=== PATIENT | female | born 1935 | race Caucasian/White ===

== ENCOUNTER → 2018-09-19 15:48 | Outpatient (CLI) | payer MEDICARE, SELFPAY ==
--- NOTE | 2018-09-18 | IMM_PTH ---
PATIENT: TONIA EDMOND LOC: [facility] U#:[id number] AGE/SX: 89/F ROOM: RE09/19/[address]: Dr. Agustín Acevedo MD : 1935 BED: DIS: SPEC #: [id number] RECD: 09/20/18 13:37 STATUS: EUNICE REQ #: [id number] BLADIMIR: 09/18/18 00:[address]: Agustín Acevedo DEPT: IMMUNOHISTOCHEMISTRY RECD BY: Valery Zuniga ENTERED: 09/20/18 13:38 SP TYPE: IMMUNO OTHR DR: Dr. North Quintana MD Tissues: Stomach, NOS Procedures: H Pylori (initial) PHYSICIAN & INSTITUTION [facility] [id number] SPECIMEN INFORMATION: Tissue Source: Antral biopsy Clinical Info: Screening Specimen Number: [id number] CPT code: 02695 METHODOLOGY: Deparaffinized sections of prefer/formalin-fixed tissue or PAP/DQ stained slides are incubated with monoclonal/polyclonal antibodies/oligonucleotide probes. Localization is made via biotin free immunoperoxidase method. Appropriate controls are performed and reacted as expected. Results on target cell population are indicated in the following table: RESULTS: ANTIBODY / CLONE RESULT H Pylori (polyclonal) negative These tests were developed and their performance characteristics determined by [facility]. They may not have been cleared or approved by the [place]. Food and Drug Administration. The FDA has determined that such clearance or approval is not necessary. INTERPRETATION: Antral biopsy: Negative for Helicobacter pylori organisms. AM:dandy 09/21/18
--- NOTE | 2018-09-18 17:09 | EGD_PTH ---
PAT[facility]: [facility]MON[id number] AGE/SX: 89/F ROOM: RE09/19/[address]: Dr. Agustín Acevedo MD : 1935 BED: DIS: SPEC #: [id number] RECD: 09/19/18 15:11 STATUS: EUNICE REJeff #: [id number] BLADIMIR: 09/18/18 17:[address]: Agustín Acevedo DEPT: SURGICAL PATHOLOGY RECD BY: Sukhjinder Lobo ENTERED: 09/20/18 12:52 SP TYPE: EGD BIOPSY OTHR DR: Dr. North Quintana MD Tissues: Gastric mucous membrane Procedures: Surgery Specimen Level IV HEADER OPERATION: EGD with biopsy PRE-OP DIAGNOSIS: Not noted TISSUE SUBMITTED: Antral biopsy for H & H MICROSCOPIC DIAGNOSIS Gastric antrum, biopsy: Mild chronic gastritis. AM:dandy 09/21/18 COMMENT The results of immunohistochemistry for Helicobacter pylori will be reported separately ([id number]). MICROSCOPIC DESCRIPTION Slides are reviewed. GROSS DESCRIPTION Received in fixative is one container labeled with the patient's name and designated antral biopsy. The specimen consists of multiple irregular fragments of kumar soft tissue that in aggregate measure 0.5 x 0.5 x 0.1 cm. The specimen is totally submitted in one cassette. / SJ:dandy 09/20/18 TC:3 [facility]: [id number]
== END ==
PROVIDERS: Family Provider Internal Medicine; PCP Internal Medicine; Referring Provider Internal Medicine Gastroenterology; Visit Provider Internal Medicine Gastroenterology
DX: K29.50 Unspecified chronic gastritis without bleeding (principal)
CPT/HCPCS: 88305; 88342

== ENCOUNTER → 2023-12-20 | Outpatient (CLI) | payer MEDICARE, SELFPAY ==
--- NOTE | 2023-12-20 10:05 | MRI_ITS ---
HISTORY: Lower back pain and right leg pain x 3 weeks, no surgery, evaluate spinal stenosis. TECHNIQUE: Multiplanar and multisequence MR images of the lumbar spine were obtained without intravenous contrast. 173 images. COMPARISON: None. FINDINGS: VERTEBRAE: Vertebral body heights maintained. Degenerative bone marrow endplate changes at multiple levels. No other significant bone marrow signal abnormality. ALIGNMENT: 2 mm anterolisthesis of L3-4. CONUS: Normal morphology and position of the conus medullaris at the lower L1 level. Tortuosity and redundancy of the cauda equina nerve root secondary to high-grade spinal canal stenosis. INTERVERTEBRAL DISCS: Posterior disc bulge osteophyte complexes with facet arthropathy at multiple levels. T10-11: Mild central canal stenosis and bilateral foraminal narrowing based on the sagittal images. T11-12: Mild-moderate central canal stenosis with mild left and moderate-severe right foraminal narrowing. T12-L1: Mild central canal stenosis and bilateral foraminal narrowing. L1-2: Mild-moderate central canal stenosis with moderate-severe left and mild right foraminal narrowing. L2-3: Severe central canal stenosis with probable bilateral L3 nerve root impingement. Moderate-severe left foraminal narrowing with left L2 nerve root abutment and moderate right foraminal narrowing L3-4: Markedly severe central canal stenosis with right L4 nerve root impingement and left L4 nerve root abutment. Moderate bilateral foraminal narrowing with right L3 nerve root impingement and left L3 nerve root abutment. L4-5: Posterior synovial cysts. Severe central canal stenosis with the right L5 nerve root impingement. Moderate left foraminal narrowing and moderate-severe right foraminal narrowing with right L4 nerve root impingement. L5-S1: Mild central canal stenosis. Moderate-severe bilateral foraminal narrowing with bilateral L5 nerve root abutment. SOFT TISSUES: Bilateral renal cysts measuring up to 8 cm on the left. Dilated common bile duct, which can be a normal finding postcholecystectomy. Posterior subcutaneous edema. MRI/Spine Lumbar (Routine) IMPRESSION: Multilevel degenerative disc disease of the lumbar spine with severe spinal canal stenosis, bilateral foraminal narrowing, and nerve root impingement as above. Electronically Signed: Nessa Dunn MD at 9:53 EDT ,
[2023-12-20 10:52] VITALS: BP 164/101; PULSE 80; RESP 16; O2SAT 96
[2023-12-20 11:02] VITALS: BP 158/78; PULSE 80; RESP 16; O2SAT 95
[2023-12-20 11:12] VITALS: BP 161/84; PULSE 80; RESP 16; O2SAT 94
[2023-12-20 11:22] VITALS: BP 145/82; PULSE 80; RESP 16; O2SAT 93
[2023-12-20 11:34] VITALS: BP 194/93; PULSE 78; RESP 16; O2SAT 96
== END | disposition home or self-care (01) ==
PROVIDERS: PCP Internal Medicine; Referring Provider Orthopaedic Surgery; Visit Provider Orthopaedic Surgery
DX: M48.061 Spinal stenosis, lumbar region without neurogenic claudication (principal); M47.896 Other spondylosis, lumbar region; M54.16 Radiculopathy, lumbar region
CPT/HCPCS: 72148